=== PATIENT | female | born 1990 | race African-American/Black ===

== ENCOUNTER 2017-01-07 05:25 | Emergency (ER) | payer OTHER, BC ==
[2017-01-07] MEDS ORDERED: DIPH/PERTUSS(ACELL)/TETANUS VAC/PF 0.5 ML SYR (>=10YO) IM ONE (05:48)
[2017-01-07] MEDS ORDERED: ACETAMINOPHEN 325 MG TABLET PO ONE (05:48)
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
[2017-01-07 08:05] VITALS: BP 131/76
== END 2017-01-07 07:50 | disposition home or self-care (01) ==
LOC: ER 05:25
PROC: 2W3RX1Z Immobilization of Left Lower Leg using Splint (ICD-10-PCS; principal; 2017-01-07)
DX: S92.345A Nondisplaced fracture of fourth metatarsal bone, left foot, initial encounter for closed fracture (principal); S93.409A Sprain of unspecified ligament of unspecified ankle, initial encounter; S39.012A Strain of muscle, fascia and tendon of lower back, initial encounter; S80.00XA Contusion of unspecified knee, initial encounter; S40.812A Abrasion of left upper arm, initial encounter; S40.811A Abrasion of right upper arm, initial encounter; S80.812A Abrasion, left lower leg, initial encounter; S80.811A Abrasion, right lower leg, initial encounter; S90.519A Abrasion, unspecified ankle, initial encounter; M25.561 Pain in right knee; M25.562 Pain in left knee; M25.571 Pain in right ankle and joints of right foot; M25.572 Pain in left ankle and joints of left foot; M79.671 Pain in right foot; M79.672 Pain in left foot; V49.40XA Driver injured in collision with unspecified motor vehicles in traffic accident, initial encounter
CPT/HCPCS: 72125; 90471; 90715; 99284